=== PATIENT | female | born 1950 | race Caucasian/White ===

== ENCOUNTER → 2017-05-07 | Outpatient (CLI) | payer OTHER, MEDICAID | LOC: CIMAGING 07:32 | DX: Z12.31 Encounter for screening mammogram for malignant neoplasm of breast (principal) | CPT/HCPCS: G0202 ==

== ENCOUNTER 2017-10-21 07:37 | Day surgery (SDC) | payer OTHER, MEDICAID ==
[2017-10-21] MEDS ORDERED: diphenhydrAMINE 25 MG CAP PO ONE (07:41)
[2017-10-21] MEDS ORDERED: FAMOTIDINE 20 MG TAB PO ONE (07:41)
[2017-10-21] MEDS ORDERED: NS 1,000 ML IV ONE (07:41)
[2017-10-21] MEDS ORDERED: DIAZEPAM 5 MG TAB PO ONE (07:41)
[2017-10-21] MEDS ORDERED: ASPIRIN EC 325 MG TAB PO ONE (07:41)
--- NOTE | 2017-10-21 08:06 | CPEKG ---
Heart Rate: 68 RR Interval: 882 P-R Interval: 172 QRSD Interval: 106 QT Interval: 424 QTC Interval: 451 P Bush: 47 QRS Bush: 66 T Wave Bush: 4 EKG Severity - NORMAL ECG - EKG Impression: SINUS RHYTHM Electronically Signed By: Sam Kimble 23-Oct-2017 13:05:27
[2017-10-21 08:19] LABS: PLATELET COUNT 207 10^3/uL (150-400)
[2017-10-21 08:28] LABS: INR 0.97 (0.83-1.16); PROTIME(PATIENT) 13.1 SEC (12.0-15.0)
--- NOTE | 2017-10-21 09:19 | PDPROPOC ---
Sedation Plan of Care Sedation Plan of Care: vital signs stable, mental status noted, patient educated of risks, benefits, alternatives, patient can tolerate sedation ASA Classification: ASA 2 Planned drugs: fentanyl, midazolam Mallampati Score: Class 2 Mallampati Reference Image: Patient passed 3-3-2 rule?: Yes
--- NOTE | 2017-10-21 09:19 | PDHPUP ---
History & Physical Update H&P update statement: This history and physical update is based on an assessment of the patient which was completed after admission or registration (within 24 hours), but prior to the surgery/procedure. H&P update: H&P reviewed & patient examined, no change in patient's condition since H&P completed
[2017-10-21] MEDS ORDERED: LIDOCAINE 1% 300 MG/30 ML SDV ONE (09:41)
[2017-10-21] MEDS ORDERED: fentaNYL 100 MCG/2 ML INJ ONE ×2 (09:41→10:27)
[2017-10-21] MEDS ORDERED: MIDAZOLAM 2 MG/2 ML VIAL ONE ×2 (09:41→10:55)
[2017-10-21] MEDS ORDERED: IOPAMIDOL (ISOVUE-370) 150 ML BTL IV ONE (09:42)
[2017-10-21] MEDS ORDERED: BIVALIRUDIN 250 MG/5 ML VIAL IV ONE (10:26)
--- NOTE | 2017-10-21 11:33 | CPIP ---
[f rep st] INVASIVE CARDIAC PROCEDURE DATE OF PROCEDURE: 10/21/2017 PROCEDURE: 1. Coronary angiography. 2. Left ventriculography. INDICATION: 1. Known coronary artery disease. 2. Chest pain, concerning for class III angina. ACCESS: The patient was prepped and draped in sterile fashion. 1% lidocaine was used to anesthetize the right inguinal region. A 6-[place]an introducer sheath was placed selectively into the right commo n femoral artery via modified Seldinger technique. CORONARY ANGIOGRAPHY: A 6-[place] JL4 was advanced to the left main coronary artery and images obtain ed. The left main coronary artery bifurcated into LAD and circumflex coronary arteries. The left ma in coronary artery appeared normal. The left anterior descending coronary artery had mild disease in the proximal segment. The worst stenosis was approximately 20%. The left anterior descending coron josh artery gave rise to 1 diagonal branch. The diagonal branch was free of any significant disease. Circumflex coronary artery was a moderate-sized vessel. The circumflex coronary artery had mild lum inal irregularities throughout. There was no stenosis greater than 10%. A 6-[place] JR4 was advanced to the right coronary artery and images obtained. The right coronary artery was previously stented from the proximal to distal segments. The previously placed stents demonstrated a 100% in-stent rest enosis. The distal vessel was being filled by [id number] collaterals as well as [id number] co llaterals. COMPLICATIONS: None. CONCLUSIONS: 1. Single-vessel coronary artery disease. 2. Normal left ventricular size and systolic function. 3. Plan is for medical management. /[id number]/MODL
[2017-10-21] MEDS ORDERED: NITROGLYCERIN 0.4 MG BTL SL PRN (12:44)
[2017-10-21] MEDS ORDERED: ONDANSETRON 4 MG/2 ML VIAL IVP PRN (12:44)
[2017-10-21] MEDS ORDERED: ATROPINE SULFATE 1 MG/10 ML SYR IVP PRN (12:44)
== END 2017-10-21 14:25 | disposition home or self-care (01) ==
LOC: FCATH 07:37
PROVIDERS: ATTEND Internal Medicine Cardiovascular Disease
PROC: 4A023N7 Measurement of Cardiac Sampling and Pressure, Left Heart, Percutaneous Approach (ICD-10-PCS; principal; 2017-10-21)
PROC: B2151ZZ Fluoroscopy of Left Heart using Low Osmolar Contrast (ICD-10-PCS; principal; 2017-10-21)
PROC: B2111ZZ Fluoroscopy of Multiple Coronary Arteries using Low Osmolar Contrast (ICD-10-PCS; principal; 2017-10-21)
DX: R07.9 Chest pain, unspecified (principal); I25.119 Atherosclerotic heart disease of native coronary artery with unspecified angina pectoris; E78.5 Hyperlipidemia, unspecified; I10 Essential (primary) hypertension; R00.2 Palpitations
CPT/HCPCS: C1760; J0583; J1644; J2250; J3010; Q9967

== ENCOUNTER → 2017-10-29 | Outpatient (CLI) | payer OTHER, MEDICAID | LOC: BHFA 09:00 | PROVIDERS: ATTEND Internal Medicine Cardiovascular Disease | DX: R00.2 Palpitations (principal); R07.9 Chest pain, unspecified ==

== ENCOUNTER → 2017-10-31 | Outpatient (CLI) | payer OTHER, MEDICAID | LOC: BHFA 09:00 | PROVIDERS: ATTEND Internal Medicine Cardiovascular Disease | DX: R07.9 Chest pain, unspecified (principal) | CPT/HCPCS: 78452; 93017; A9500; J2785 ==

== ENCOUNTER 2017-12-01 10:43 | Emergency (ER) | payer OTHER, MEDICAID ==
[2017-12-01 10:51] VITALS: RESP 20; TEMP 98
[2017-12-01] MEDS ORDERED: IPRATROPIUM/ALBUTEROL 3 ML DEYVIAL IH ONE (10:57)
--- NOTE | 2017-12-01 11:00 | EDPHY ---
H & P Stated Complaint: c/o URI /Cough/SOB x 1 week Time Seen by Provider: 12/01/17 10:51 HPI/ROS: CHIEF COMPLAINT: Cough HISTORY OF PRESENT ILLNESS: Patient is a 67-year-old female with a history of coronary artery disease and asthma who comes to the emergency department complaining of cough for the last 10 days. It is productive of yellow sputum. She had a fever last week but it has now resolved. She states that it bothers her at night and she has trouble sleeping. No shortness of breath. No chest pain. No nausea vomiting. No diaphoresis. She has had 7 cardiac stents in the past and they are considering CABG after a catheterization last month that showed significant reocclusion however she states that she is not having any cardiac symptoms today. REVIEW OF SYSTEMS: Constitutional: denies: chills, fever, recent illness, recent injury EENTM: denies: blurred vision, double vision, nose congestion Respiratory: See HPI Cardiac: denies: chest pain, irregular heart rate, lightheadedness, palpitations Gastrointestinal/Abdominal: denies: abdominal pain, diarrhea, nausea, vomiting, blood streaked stools Genitourinary: denies: dysuria, frequency, hematuria, pain Musculoskeletal: denies: joint pain, muscle pain Skin: denies: lesions, rash, jaundice, bruising Neurological: denies: headache, numbness, paresthesia, tingling, dizziness, weakness Hematologic/Lymphatic: denies: blood clots, easy bleeding, easy bruising Immunologic/allergic: denies: HIV/AIDS, transplant EXAM: GENERAL: Well-appearing, well-nourished and in no acute distress. HEAD: Atraumatic, normocephalic. EYES: Pupils equal round and reactive to light, extraocular movements intact, sclera anicteric, conjunctiva are normal. ENT: TMs normal, nares patent, oropharynx clear without exudates. Moist mucous membranes. NECK: Normal range of motion, supple without lymphadenopathy or JVD. LUNGS: Breath sounds clear to auscultation bilaterally and equal. No wheezes rales or rhonchi. HEART: Regular rate and rhythm without murmurs, rubs or gallops. ABDOMEN: Soft, nontender, normoactive bowel sounds. No guarding, no rebound. No masses appreciated. BACK: No CVA tenderness, no spinal tenderness, step-offs or deformities EXTREMITIES: Normal range of motion, no pitting or edema. No clubbing or cyanosis. NEUROLOGICAL: Cranial nerves II through XII grossly intact. Normal speech, normal gait. 5/5 strength, normal movement in all extremities, normal sensation PSYCH: Normal mood, normal affect. SKIN: Warm, dry, normal turgor, no visible rashes or lesions. Source: Patient Exam Limitations: No limitations - Personal History Current Tetanus Diphtheria and Acellular Pertussis (TDAP): Yes - Medical/Surgical History Hx Asthma: Yes Hx Chronic Respiratory Disease: No Hx Diabetes: No Hx Cardiac Disease: Yes Hx Renal Disease: No Hx Cirrhosis: No Hx Alcoholism: No Hx HIV/AIDS: No Hx Splenectomy or Spleen Trauma: No Other PMH: med hx- htn,gerd,cholesterol,anxiety,depression. surg-7 stents, tonsilectomy and adenoidectomy? - Family History Significant Family History: No pertinent family hx - Social History Smoking Status: Never smoked Alcohol Use: Sober Constitutional: Initial Vital Signs Temperature (C) 36.6 C 12/01/17 10:49 Heart Rate 69 12/01/17 10:49 Respiratory Rate 20 12/01/17 10:49 Blood Pressure 127/74 H 12/01/17 10:49 O2 Sat (%) 97 12/01/17 10:49 O2 Delivery Mode Room Air Allergies/Adverse Reactions: Penicillins Allergy (Verified 02/22/16 19:32) procaine HCl [From Novocain] Allergy (Verified 02/22/16 19:32) Home Medications: Medication Instructions Recorded Clopidogrel Bisulfate [Plavix] 75 mg PO DAILY 04/03/11 Hydrochlorothiazide [HCTZ (*)] 25 mg PO DAILY 04/03/11 Labetalol HCl [Trandate] 100 mg PO DAILY 04/03/11 Albuterol [Proventil Inhaler HFA 1 - 2 puffs IH Q4H #1 mdi 02/22/16 (*)] Aspirin EC [Aspirin EC 81 mg (*)] 81 mg PO DAILY 10/20/17 Citalopram Hydrobromide 10 mg PO HS 10/20/17 [Citalopram HBr] Diltiazem HCl [Diltiazem ER] 120 mg PO HS 10/20/[address] [place]-3 Fatty Acids [Fish Oil 1000 1,000 mg PO DAILY 10/20/17 mg (*)] Ranolazine [RANEXA 500mg (RX)] 1,000 mg PO DAILY PRN 10/20/17 Rosuvastatin Calcium [Crestor 40mg 40 mg PO DAILY 10/20/17 (*)] Valsartan [Diovan] 320 mg PO DAILY 10/20/17 clonAZEPAM [Klonopin] 0.5 mg PO HS 10/20/17 traMADol [Ultram 50 mg (*)] 50 mg PO Q4 PRN 10/20/17 Albuterol [Proventil Inhaler] 1 - 2 puffs IH Q4H #1 mdi 12/01/17 Azithromycin 250 mg PO DAILY #4 tablet 12/01/17 Promethazine HCl/Codeine 5 ml PO Q4-6PRN PRN #90 ml 12/01/17 [Prometh-Codein 6.25-10 mg/5 ml] Medical Decision Making - Diagnostics Imaging Results: Imaging Impressions Chest X-Ray 12/01/17 10:57 Impression: Airways disease. No pneumonia. Imaging: I viewed and interpreted images myself (Bronchitis) ED Course/Re-evaluation: Patient has concerning cardiac history however symptoms do seem to correlate more with bronchitis or respiratory infection. She is declining cardiac workup. She states that this happened to her last year and she got better with antibiotics and albuterol. She has not been taking anything at home. She denies chest pain. She is well appearing and is walking around the department. 11:30 a.m. the patient feels much better after albuterol. She has been given azithromycin. She states that she has done well with this before. I will also prescribe her an albuterol inhaler and cough syrup. She is happy with this and declines further workup or testing. Differential Diagnosis: Partial list of the Differential diagnosis considered include but were not limited to; bronchitis, pneumonia, COPD and although unlikely based on the history and physical exam, I also considered acute coronary disease, dissection pulmonary edema. I discussed these differential diagnoses and the plan with the patient as well as the usual and expected course. The patient understands that the diagnosis is provisional and that in medicine we are not always correct and that further workup is often warranted. Usual and customary warnings were given. All of the patient's questions were answered. The patient was instructed to return to the emergency department should the symptoms at all worsen or return, otherwise to followup with the physician as we discussed. - Data Points Medications Given: Discontinued Medications Albuterol/Ipratropium (Duoneb) 3 ml IH EDNOW ONE Stop: 12/01/17 10:58 Last Admin: 12/01/17 11:17 Dose: 3 ml Azithromycin (Zithromax) 500 mg PO EDNOW ONE PRN Reason: Protocol Stop: 12/01/17 10:58 Last Admin: 12/01/17 11:34 Dose: 500 mg Departure - Departure Disposition: Home, Routine, Self-Care Clinical Impression: Acute bronchitis Qualifiers: Bronchitis organism: unspecified organism Qualified Code(s): J20.9 - Acute bronchitis, unspecified Condition: Fair Instructions: Albuterol (By breathing), Azithromycin (By mouth), Promethazine/ Codeine (By mouth), Acute Bronchitis (ED) Referrals: JANEEN FINLEY [Other] - 3-4 days, if not improved Prescriptions: Albuterol [Proventil Inhaler] 1 - 2 puffs IH Q4H #1 mdi Azithromycin 250 mg PO DAILY #4 tablet Promethazine HCl/Codeine [Prometh-Codein 6.25-10 mg/5 ml] 5 ml PO Q4-6PRN PRN # 90 ml PRN Reason: Cough, Moderate
[2017-12-01] MEDS: AZITHROMYCIN 250 MG TAB PO ONE ×2 (11:17→11:34)
[2017-12-01 11:37] VITALS: BP 134/60; PULSE 79; O2SAT 100
== END 2017-12-01 12:15 | disposition home or self-care (01) ==
LOC: CED 10:43
DX: J20.9 Acute bronchitis, unspecified (principal); J45.909 Unspecified asthma, uncomplicated; I10 Essential (primary) hypertension; Z79.82 Long term (current) use of aspirin
CPT/HCPCS: 71046-PO

== ENCOUNTER → 2018-05-11 | Outpatient (CLI) | payer OTHER, MEDICAID | LOC: CIMAGING 10:00 | DX: Z12.31 Encounter for screening mammogram for malignant neoplasm of breast (principal) ==